=== PATIENT | female | born 1965 | race African-American/Black ===

== ENCOUNTER 2021-02-22 17:41 | Inpatient (IN) | payer OTHER ==
[2021-02-22 19:22] VITALS: BMI 36.3
[2021-02-22] MEDS ORDERED: MAG HYDROX/AL HYDROX/SIMETH 30 ML UNIT-DOSE CUP PO PRN (20:39)
[2021-02-22] MEDS ORDERED: MAGNESIUM CITRATE 300 ML BOTTLE PO PRN (20:39)
[2021-02-22] MEDS ORDERED: MENTHOL/PHENOL 1 EACH UD MM PRN (20:39)
[2021-02-22] MEDS ORDERED: BISMUTH SUBSALICYLATE 524 MG/30 ML PO PRN (20:39)
[2021-02-22] MEDS ORDERED: IBUPROFEN 400 MG TABLET (FP) PO PRN (20:39)
[2021-02-22] MEDS ORDERED: ONDANSETRON *ODT* 4 MG TABLET SL PRN (20:39)
[2021-02-22] MEDS ORDERED: MAGNESIUM HYDROX 2400MG/30ML ORAL SUSPENSION 30 ML CUP PO PRN (20:39)
[2021-02-22] MEDS ORDERED: NICOTINE POLACRILEX 2 MG GUM BUC PRN (20:39)
[2021-02-22] MEDS ORDERED: methaDONE HCL 10 MG TABLET (FOR DETOX USE ONLY) PO ONE (20:39)
[2021-02-22] MEDS ORDERED: cloNIDine HCL 0.1 MG TABLET PO PRN (20:39)
[2021-02-22] MEDS ORDERED: ACETAMINOPHEN 325 MG TABLET (FP) PO PRN ×2 (20:39)
[2021-02-22] MEDS ORDERED: THIAMINE HCL 100 MG TABLET (FP) PO SCH (22:00)
[2021-02-22] MEDS ORDERED: hydrOXYzine PAMOATE 25 MG CAPSULE (FP) PO SCH (22:00)
[2021-02-22] MEDS: MELATONIN 5 MG TABLETS PO SCH (22:39)
[2021-02-23] MEDS ORDERED: methaDONE HCL 10 MG TABLET (FOR DETOX USE ONLY) ONE (09:25)
[2021-02-23] MEDS: METHOCARBAMOL 500 MG TABLET PO PRN (10:21)
[2021-02-23] MEDS: PRENATAL VITAMINS W/ FOLIC ACID TABLET (FP) PO SCH (10:21)
[2021-02-23] MEDS: LISINOPRIL 5 MG TABLET PO SCH (10:22)
[2021-02-23] MEDS: NICOTINE 21 MG/24 HOURS TOPICAL PATCH TD SCH (10:25)
[2021-02-23] MEDS: INSULIN SLIDING SCALE (NOVOLOG) 1 VIAL SQ SCH ×2 (11:00→16:37)
[2021-02-23 11:10] LABS: HEMATOCRIT 34.6 % (32.4-45.2); HEMOGLOBIN 11.3 GM/dL (10.7-15.3); MCH 26.7 pg (25.7-33.7); MCHC 32.8 g/dl (32.0-36.0); MEAN CELL VOLUME 81.4 fl (80-96); MEAN PLT VOLUME 10.4 fl (7.5-11.1); PLATELET COUNT 249 10^3/uL (134-434); RBC 4.24 M/mm3 (3.60-5.2); RDW 15.1 % (11.6-15.6); WHITE BLOOD COUNT 6.3 K/mm3 (4.0-10.0)
[2021-02-23 11:19] LABS: BLOOD UREA NITROGEN 12.3 mg/dL (7-18)
[2021-02-23 11:20] LABS: ALBUMIN 3.3 g/dl (3.4-5.0); CALCIUM 8.8 mg/dL (8.5-10.1)
[2021-02-23 11:23] LABS: CREATININE 0.9 mg/dL (0.55-1.3)
[2021-02-23 11:25] LABS: BILIRUBIN,TOTAL 0.2 mg/dL (0.2-1); TOT PROT 6.4 g/dl (6.4-8.2)
[2021-02-23] MEDS: BENZTROPINE MESYLATE 1 MG TABLET PO SCH ×2 (12:09→22:00)
[2021-02-23] MEDS: risperiDONE 1 MG TABLET PO SCH ×2 (12:10→22:00)
[2021-02-23] MEDS: metFORMIN HCL 500 MG TABLET (FP) PO SCH (16:36)
[2021-02-23] MEDS: DIVALPROEX SODIUM 500 MG TABLET E.C. PO SCH (22:00)
[2021-02-23] MEDS: QUEtiapine FUMARATE 100 MG TABLET (FP) PO SCH (22:01)
[2021-02-23] MEDS: traZODone HCL 100 MG TABLET (FP) PO SCH (22:01)
[2021-02-23] MEDS: MELATONIN 5 MG TABLETS PO SCH (22:03)
[2021-02-24] MEDS: GLIMEPIRIDE 4 MG TABLET PO SCH (06:23)
[2021-02-24] MEDS: metFORMIN HCL 500 MG TABLET (FP) PO SCH ×2 (06:23→17:39)
[2021-02-24] MEDS: INSULIN SLIDING SCALE (NOVOLOG) 1 VIAL SQ SCH ×3 (06:23→17:46)
[2021-02-24] MEDS ORDERED: methaDONE HCL 10 MG TABLET (FOR DETOX USE ONLY) PO ONE (10:00)
[2021-02-24] MEDS: PRENATAL VITAMINS W/ FOLIC ACID TABLET (FP) PO SCH (10:07)
[2021-02-24] MEDS: BENZTROPINE MESYLATE 1 MG TABLET PO SCH ×2 (10:07→22:19)
[2021-02-24] MEDS: LISINOPRIL 5 MG TABLET PO SCH (10:08)
[2021-02-24] MEDS: risperiDONE 1 MG TABLET PO SCH ×2 (10:08→22:19)
[2021-02-24] MEDS: METHOCARBAMOL 500 MG TABLET PO PRN (10:08)
[2021-02-24] MEDS: NICOTINE 21 MG/24 HOURS TOPICAL PATCH TD SCH (10:09)
[2021-02-24] MEDS: QUEtiapine FUMARATE 100 MG TABLET (FP) PO SCH (22:19)
[2021-02-24] MEDS: traZODone HCL 100 MG TABLET (FP) PO SCH (22:19)
[2021-02-24] MEDS: DIVALPROEX SODIUM 500 MG TABLET E.C. PO SCH (22:19)
[2021-02-24] MEDS: MELATONIN 5 MG TABLETS PO SCH (22:20)
[2021-02-25] MEDS: metFORMIN HCL 500 MG TABLET (FP) PO SCH ×2 (06:18→17:32)
[2021-02-25] MEDS: GLIMEPIRIDE 4 MG TABLET PO SCH (06:19)
[2021-02-25] MEDS: INSULIN SLIDING SCALE (NOVOLOG) 1 VIAL SQ SCH ×3 (06:25→17:21)
[2021-02-25] MEDS ORDERED: methaDONE HCL 10 MG TABLET (FOR DETOX USE ONLY) ONE (09:05)
[2021-02-25] MEDS: LISINOPRIL 5 MG TABLET PO SCH (10:24)
[2021-02-25] MEDS: NICOTINE 21 MG/24 HOURS TOPICAL PATCH TD SCH (10:24)
[2021-02-25] MEDS: BENZTROPINE MESYLATE 1 MG TABLET PO SCH ×2 (10:25→22:20)
[2021-02-25] MEDS: risperiDONE 1 MG TABLET PO SCH ×2 (10:25→22:16)
[2021-02-25] MEDS: PRENATAL VITAMINS W/ FOLIC ACID TABLET (FP) PO SCH (10:26)
[2021-02-25] MEDS: METHOCARBAMOL 500 MG TABLET PO PRN (18:03)
[2021-02-25] MEDS: traZODone HCL 100 MG TABLET (FP) PO SCH (22:17)
[2021-02-25] MEDS: DIVALPROEX SODIUM 500 MG TABLET E.C. PO SCH (22:17)
[2021-02-25] MEDS: QUEtiapine FUMARATE 100 MG TABLET (FP) PO SCH (22:17)
[2021-02-25] MEDS: MELATONIN 5 MG TABLETS PO SCH (22:18)
[2021-02-26] MEDS: GLIMEPIRIDE 4 MG TABLET PO SCH (06:04)
[2021-02-26] MEDS: metFORMIN HCL 500 MG TABLET (FP) PO SCH ×2 (06:04→18:08)
[2021-02-26] MEDS: INSULIN SLIDING SCALE (NOVOLOG) 1 VIAL SQ SCH ×3 (06:04→18:09)
[2021-02-26] MEDS ORDERED: MAGNESIUM HYDROX 2400MG/30ML ORAL SUSPENSION 30 ML CUP PO ONE (10:00)
[2021-02-26] MEDS ORDERED: methaDONE HCL 10 MG TABLET (FOR DETOX USE ONLY) PO ONE (10:00)
[2021-02-26] MEDS: LISINOPRIL 5 MG TABLET PO SCH (10:12)
[2021-02-26] MEDS: BENZTROPINE MESYLATE 1 MG TABLET PO SCH ×2 (10:12→22:10)
[2021-02-26] MEDS: risperiDONE 1 MG TABLET PO SCH ×2 (10:12→22:10)
[2021-02-26] MEDS: NICOTINE 21 MG/24 HOURS TOPICAL PATCH TD SCH (10:12)
[2021-02-26] MEDS: PRENATAL VITAMINS W/ FOLIC ACID TABLET (FP) PO SCH (10:12)
[2021-02-26] MEDS: DOCUSATE SODIUM 100 MG CAPSULE (FP) PO SCH ×2 (13:02→22:10)
[2021-02-26] MEDS: traZODone HCL 100 MG TABLET (FP) PO SCH (22:10)
[2021-02-26] MEDS: MELATONIN 5 MG TABLETS PO SCH (22:10)
[2021-02-26] MEDS: QUEtiapine FUMARATE 100 MG TABLET (FP) PO SCH (22:10)
[2021-02-26] MEDS: DIVALPROEX SODIUM 500 MG TABLET E.C. PO SCH (22:10)
[2021-02-27] MEDS: metFORMIN HCL 500 MG TABLET (FP) PO SCH (06:17)
[2021-02-27] MEDS: DOCUSATE SODIUM 100 MG CAPSULE (FP) PO SCH (06:18)
[2021-02-27] MEDS: INSULIN SLIDING SCALE (NOVOLOG) 1 VIAL SQ SCH ×2 (06:21→11:45)
[2021-02-27] MEDS: GLIMEPIRIDE 4 MG TABLET PO SCH (06:21)
[2021-02-27] MEDS: METHOCARBAMOL 500 MG TABLET PO PRN (06:34)
[2021-02-27 09:41] VITALS: BP 125/68; PULSE 89; TEMP 98.4
[2021-02-27] MEDS: LISINOPRIL 5 MG TABLET PO SCH (11:32)
[2021-02-27] MEDS: BENZTROPINE MESYLATE 1 MG TABLET PO SCH (11:32)
[2021-02-27] MEDS: NICOTINE 21 MG/24 HOURS TOPICAL PATCH TD SCH (11:32)
[2021-02-27] MEDS: PRENATAL VITAMINS W/ FOLIC ACID TABLET (FP) PO SCH (11:32)
[2021-02-27] MEDS: risperiDONE 1 MG TABLET PO SCH (11:32)
== END 2021-02-27 11:48 | disposition other institution (70) | DRG 773 ==
LOC: YASAS 17:41 → Y6N 21:04
PROVIDERS: ADMIT Allergy & Immunology; ATTEND Allergy & Immunology
PROC: HZ2ZZZZ Detoxification Services for Substance Abuse Treatment (ICD-10-PCS; principal; 2021-02-22)
DX: F11.23 Opioid dependence with withdrawal (principal); F14.20 Cocaine dependence, uncomplicated; F17.210 Nicotine dependence, cigarettes, uncomplicated; F25.9 Schizoaffective disorder, unspecified; F19.24 Other psychoactive substance dependence with psychoactive substance-induced mood disorder; F19.282 Other psychoactive substance dependence with psychoactive substance-induced sleep disorder; I10 Essential (primary) hypertension; E11.9 Type 2 diabetes mellitus without complications; E78.5 Hyperlipidemia, unspecified; Z79.84 Long term (current) use of oral hypoglycemic drugs; Z56.0 Unemployment, unspecified
CPT/HCPCS: 36415; 80053; 82962; 85027; 86780; 93005; 93010; C9803; J2794; U0003; U0005

== ENCOUNTER 2021-02-27 12:29 | Inpatient (IN) | payer OTHER ==
[2021-02-27] MEDS ORDERED: IBUPROFEN 400 MG TABLET (FP) PO PRN (12:57)
[2021-02-27] MEDS ORDERED: hydrOXYzine PAMOATE 25 MG CAPSULE (FP) PO PRN (12:57)
[2021-02-27] MEDS ORDERED: MAG HYDROX/AL HYDROX/SIMETH 30 ML UNIT-DOSE CUP PO PRN (12:57)
[2021-02-27] MEDS ORDERED: MAGNESIUM CITRATE 300 ML BOTTLE PO PRN (12:57)
[2021-02-27] MEDS ORDERED: MENTHOL/PHENOL 1 EACH UD MM PRN (12:57)
[2021-02-27] MEDS ORDERED: ACETAMINOPHEN 325 MG TABLET (FP) PO PRN (12:57)
[2021-02-27] MEDS ORDERED: P-EPHED 60MG/TRIPROLIDI 2.5MG TABLET PO PRN (12:57)
[2021-02-27] MEDS ORDERED: MAGNESIUM HYDROX 2400MG/30ML ORAL SUSPENSION 30 ML CUP PO PRN (12:57)
[2021-02-27] MEDS ORDERED: LOPERAMIDE HCL 2 MG CAPSULE PO PRN (12:57)
[2021-02-27] MEDS ORDERED: guaiFENesin 200 MG/10 ML 10 ML UNIT-DOSE CUPS PO PRN (12:57)
[2021-02-27] MEDS: DOCUSATE SODIUM 100 MG CAPSULE (FP) PO SCH ×2 (15:32→21:13)
[2021-02-27] MEDS: METHOCARBAMOL 500 MG TABLET PO SCH ×2 (15:32→21:13)
[2021-02-27] MEDS: INSULIN SLIDING SCALE (NOVOLOG) 1 VIAL SQ SCH (16:40)
[2021-02-27] MEDS: metFORMIN HCL 500 MG TABLET (FP) PO SCH (16:40)
[2021-02-27] MEDS: NICOTINE 10 MG CARTRIDGE (INHALER) IH PRN (18:14)
[2021-02-27] MEDS: THIAMINE HCL 100 MG TABLET (FP) PO SCH (21:13)
[2021-02-27] MEDS: MELATONIN 5 MG TABLETS PO SCH (21:13)
[2021-02-28] MEDS ORDERED: INSULIN (NOVOLOG) ASPART 100 UNITS/ML 10ML VIAL ONE (03:09)
[2021-02-28] MEDS: METHOCARBAMOL 500 MG TABLET PO SCH ×3 (06:21→21:11)
[2021-02-28] MEDS: DOCUSATE SODIUM 100 MG CAPSULE (FP) PO SCH ×3 (06:21→21:11)
[2021-02-28] MEDS: GLIMEPIRIDE 4 MG TABLET PO SCH (06:23)
[2021-02-28] MEDS: INSULIN SLIDING SCALE (NOVOLOG) 1 VIAL SQ SCH ×2 (06:23→16:26)
[2021-02-28] MEDS: metFORMIN HCL 500 MG TABLET (FP) PO SCH ×2 (06:23→16:24)
[2021-02-28] MEDS: NICOTINE 10 MG CARTRIDGE (INHALER) IH PRN ×3 (07:08→16:27)
[2021-02-28] MEDS: ATORVASTATIN CA 10 MG TABLET (FP) PO SCH (10:30)
[2021-02-28] MEDS: LISINOPRIL 5 MG TABLET PO SCH (10:30)
[2021-02-28] MEDS: NICOTINE 21 MG/24 HOURS TOPICAL PATCH TD SCH (10:30)
[2021-02-28] MEDS: PRENATAL VITAMINS W/ FOLIC ACID TABLET (FP) PO SCH (10:30)
[2021-02-28] MEDS: MELATONIN 5 MG TABLETS PO SCH (21:11)
[2021-02-28] MEDS: THIAMINE HCL 100 MG TABLET (FP) PO SCH (21:12)
[2021-03-01] MEDS: metFORMIN HCL 500 MG TABLET (FP) PO SCH ×2 (07:45→16:27)
[2021-03-01] MEDS: DOCUSATE SODIUM 100 MG CAPSULE (FP) PO SCH ×3 (07:45→21:26)
[2021-03-01] MEDS: METHOCARBAMOL 500 MG TABLET PO SCH ×3 (07:45→21:26)
[2021-03-01] MEDS: GLIMEPIRIDE 4 MG TABLET PO SCH (07:45)
[2021-03-01] MEDS: INSULIN SLIDING SCALE (NOVOLOG) 1 VIAL SQ SCH ×2 (07:46→16:28)
[2021-03-01] MEDS: LISINOPRIL 5 MG TABLET PO SCH (10:07)
[2021-03-01] MEDS: PRENATAL VITAMINS W/ FOLIC ACID TABLET (FP) PO SCH (10:07)
[2021-03-01] MEDS: NICOTINE 21 MG/24 HOURS TOPICAL PATCH TD SCH (10:07)
[2021-03-01] MEDS: ATORVASTATIN CA 10 MG TABLET (FP) PO SCH (10:08)
[2021-03-01] MEDS: NICOTINE 10 MG CARTRIDGE (INHALER) IH PRN ×3 (10:08→19:21)
[2021-03-01] MEDS ORDERED: BENZTROPINE MESYLATE 2 MG TABLET PO SCH (11:30)
[2021-03-01] MEDS: hydrOXYzine PAMOATE 50 MG CAPSULE (FP) PO PRN ×2 (12:18→19:23)
[2021-03-01] MEDS: risperiDONE 1 MG TABLET PO SCH ×2 (12:18→21:26)
[2021-03-01] MEDS: MELATONIN 5 MG TABLETS PO SCH (21:26)
[2021-03-01] MEDS: BENZTROPINE MESYLATE 1 MG TABLET PO SCH (21:26)
[2021-03-01] MEDS: THIAMINE HCL 100 MG TABLET (FP) PO SCH (21:26)
[2021-03-01] MEDS: QUEtiapine FUMARATE 100 MG TABLET (FP) PO SCH (21:27)
[2021-03-01] MEDS ORDERED: MASKS NR ONE (21:27)
[2021-03-01] MEDS: DIVALPROEX SODIUM 500 MG TABLET E.C. PO SCH (21:27)
[2021-03-01] MEDS: traZODone HCL 100 MG TABLET (FP) PO SCH (21:59)
[2021-03-02] MEDS: metFORMIN HCL 500 MG TABLET (FP) PO SCH ×2 (06:57→17:04)
[2021-03-02] MEDS: METHOCARBAMOL 500 MG TABLET PO SCH ×3 (06:57→21:26)
[2021-03-02] MEDS: DOCUSATE SODIUM 100 MG CAPSULE (FP) PO SCH ×3 (06:57→21:27)
[2021-03-02] MEDS: GLIMEPIRIDE 4 MG TABLET PO SCH (06:58)
[2021-03-02] MEDS: INSULIN SLIDING SCALE (NOVOLOG) 1 VIAL SQ SCH ×2 (06:59→17:06)
[2021-03-02] MEDS: NICOTINE 10 MG CARTRIDGE (INHALER) IH PRN ×3 (07:36→17:03)
[2021-03-02] MEDS: NICOTINE 21 MG/24 HOURS TOPICAL PATCH TD SCH (10:35)
[2021-03-02] MEDS: BENZTROPINE MESYLATE 1 MG TABLET PO SCH ×2 (10:35→21:27)
[2021-03-02] MEDS: LISINOPRIL 5 MG TABLET PO SCH (10:36)
[2021-03-02] MEDS: risperiDONE 1 MG TABLET PO SCH ×2 (10:36→21:27)
[2021-03-02] MEDS: ATORVASTATIN CA 10 MG TABLET (FP) PO SCH (10:36)
[2021-03-02] MEDS: PRENATAL VITAMINS W/ FOLIC ACID TABLET (FP) PO SCH (10:36)
[2021-03-02] MEDS: hydrOXYzine PAMOATE 50 MG CAPSULE (FP) PO PRN ×2 (12:40→21:29)
[2021-03-02] MEDS: THIAMINE HCL 100 MG TABLET (FP) PO SCH (21:26)
[2021-03-02] MEDS: QUEtiapine FUMARATE 100 MG TABLET (FP) PO SCH (21:26)
[2021-03-02] MEDS: DIVALPROEX SODIUM 500 MG TABLET E.C. PO SCH (21:27)
[2021-03-02] MEDS: traZODone HCL 100 MG TABLET (FP) PO SCH (21:27)
[2021-03-02] MEDS: MELATONIN 5 MG TABLETS PO SCH (23:36)
[2021-03-03] MEDS ORDERED: PT OWN MED DRAWER 7, Y5N ONE (03:08)
[2021-03-03] MEDS: metFORMIN HCL 500 MG TABLET (FP) PO SCH ×2 (06:58→17:09)
[2021-03-03] MEDS: GLIMEPIRIDE 4 MG TABLET PO SCH (06:58)
[2021-03-03] MEDS: METHOCARBAMOL 500 MG TABLET PO SCH ×3 (06:58→21:06)
[2021-03-03] MEDS: DOCUSATE SODIUM 100 MG CAPSULE (FP) PO SCH ×3 (06:58→21:06)
[2021-03-03] MEDS: INSULIN SLIDING SCALE (NOVOLOG) 1 VIAL SQ SCH ×2 (06:58→17:09)
[2021-03-03] MEDS ORDERED: INSULIN (NOVOLOG) ASPART 100 UNITS/ML 10ML VIAL ONE (06:59)
[2021-03-03] MEDS: hydrOXYzine PAMOATE 50 MG CAPSULE (FP) PO PRN ×4 (07:00→17:37)
[2021-03-03] MEDS: PRENATAL VITAMINS W/ FOLIC ACID TABLET (FP) PO SCH (10:09)
[2021-03-03] MEDS: risperiDONE 1 MG TABLET PO SCH ×2 (10:10→21:06)
[2021-03-03] MEDS: BENZTROPINE MESYLATE 1 MG TABLET PO SCH ×2 (10:10→21:06)
[2021-03-03] MEDS: NICOTINE 21 MG/24 HOURS TOPICAL PATCH TD SCH (10:10)
[2021-03-03] MEDS: ATORVASTATIN CA 10 MG TABLET (FP) PO SCH (10:10)
[2021-03-03] MEDS: LISINOPRIL 5 MG TABLET PO SCH (10:11)
[2021-03-03] MEDS: NICOTINE 10 MG CARTRIDGE (INHALER) IH PRN ×3 (10:14→17:37)
[2021-03-03] MEDS: QUEtiapine FUMARATE 100 MG TABLET (FP) PO SCH (21:06)
[2021-03-03] MEDS: traZODone HCL 100 MG TABLET (FP) PO SCH (21:06)
[2021-03-03] MEDS: MELATONIN 5 MG TABLETS PO SCH (21:06)
[2021-03-03] MEDS: DIVALPROEX SODIUM 500 MG TABLET E.C. PO SCH (21:06)
[2021-03-03] MEDS: THIAMINE HCL 100 MG TABLET (FP) PO SCH (21:06)
[2021-03-04] MEDS: DOCUSATE SODIUM 100 MG CAPSULE (FP) PO SCH ×3 (06:21→21:20)
[2021-03-04] MEDS: METHOCARBAMOL 500 MG TABLET PO SCH ×3 (06:21→21:19)
[2021-03-04] MEDS: metFORMIN HCL 500 MG TABLET (FP) PO SCH ×2 (07:21→17:29)
[2021-03-04] MEDS ORDERED: PT OWN MED DRAWER 7, Y5N ONE (07:23)
[2021-03-04] MEDS: GLIMEPIRIDE 4 MG TABLET PO SCH (07:23)
[2021-03-04] MEDS: INSULIN SLIDING SCALE (NOVOLOG) 1 VIAL SQ SCH ×2 (07:30→17:29)
[2021-03-04] MEDS: LISINOPRIL 5 MG TABLET PO SCH (10:01)
[2021-03-04] MEDS: PRENATAL VITAMINS W/ FOLIC ACID TABLET (FP) PO SCH (10:01)
[2021-03-04] MEDS: ATORVASTATIN CA 10 MG TABLET (FP) PO SCH (10:01)
[2021-03-04] MEDS: BENZTROPINE MESYLATE 1 MG TABLET PO SCH ×2 (10:02→21:18)
[2021-03-04] MEDS: NICOTINE 21 MG/24 HOURS TOPICAL PATCH TD SCH (10:02)
[2021-03-04] MEDS: hydrOXYzine PAMOATE 50 MG CAPSULE (FP) PO PRN ×4 (10:02→21:20)
[2021-03-04] MEDS: NICOTINE 10 MG CARTRIDGE (INHALER) IH PRN ×2 (10:02→17:57)
[2021-03-04] MEDS: risperiDONE 1 MG TABLET PO SCH ×2 (10:02→21:19)
[2021-03-04] MEDS: traZODone HCL 100 MG TABLET (FP) PO SCH (21:18)
[2021-03-04] MEDS: DIVALPROEX SODIUM 500 MG TABLET E.C. PO SCH (21:18)
[2021-03-04] MEDS: QUEtiapine FUMARATE 100 MG TABLET (FP) PO SCH (21:19)
[2021-03-04] MEDS: MELATONIN 5 MG TABLETS PO SCH (21:20)
[2021-03-04] MEDS: THIAMINE HCL 100 MG TABLET (FP) PO SCH (22:19)
[2021-03-05] MEDS ORDERED: PT OWN MED DRAWER 7, Y5N ONE (03:43)
[2021-03-05] MEDS: DOCUSATE SODIUM 100 MG CAPSULE (FP) PO SCH ×3 (08:03→21:38)
[2021-03-05] MEDS: METHOCARBAMOL 500 MG TABLET PO SCH ×3 (08:03→21:38)
[2021-03-05] MEDS: hydrOXYzine PAMOATE 50 MG CAPSULE (FP) PO PRN ×3 (08:04→18:24)
[2021-03-05] MEDS: NICOTINE 10 MG CARTRIDGE (INHALER) IH PRN ×2 (08:05→16:34)
[2021-03-05] MEDS: INSULIN SLIDING SCALE (NOVOLOG) 1 VIAL SQ SCH ×2 (08:08→16:33)
[2021-03-05] MEDS: GLIMEPIRIDE 4 MG TABLET PO SCH (08:08)
[2021-03-05] MEDS: metFORMIN HCL 500 MG TABLET (FP) PO SCH ×2 (08:08→16:33)
[2021-03-05] MEDS: BENZTROPINE MESYLATE 1 MG TABLET PO SCH ×2 (10:00→21:38)
[2021-03-05] MEDS: risperiDONE 1 MG TABLET PO SCH ×2 (10:00→21:38)
[2021-03-05] MEDS: PRENATAL VITAMINS W/ FOLIC ACID TABLET (FP) PO SCH (10:00)
[2021-03-05] MEDS: NICOTINE 21 MG/24 HOURS TOPICAL PATCH TD SCH (10:00)
[2021-03-05] MEDS: LISINOPRIL 5 MG TABLET PO SCH (10:00)
[2021-03-05] MEDS: ATORVASTATIN CA 10 MG TABLET (FP) PO SCH (10:00)
[2021-03-05] MEDS: DIVALPROEX SODIUM 500 MG TABLET E.C. PO SCH (21:38)
[2021-03-05] MEDS: QUEtiapine FUMARATE 100 MG TABLET (FP) PO SCH (21:38)
[2021-03-05] MEDS: MELATONIN 5 MG TABLETS PO SCH (21:38)
[2021-03-05] MEDS: traZODone HCL 100 MG TABLET (FP) PO SCH (21:38)
[2021-03-05] MEDS: THIAMINE HCL 100 MG TABLET (FP) PO SCH (21:38)
[2021-03-06] MEDS: METHOCARBAMOL 500 MG TABLET PO SCH ×3 (06:40→21:28)
[2021-03-06] MEDS: DOCUSATE SODIUM 100 MG CAPSULE (FP) PO SCH ×3 (06:40→21:26)
[2021-03-06] MEDS: GLIMEPIRIDE 4 MG TABLET PO SCH (06:40)
[2021-03-06] MEDS: metFORMIN HCL 500 MG TABLET (FP) PO SCH ×2 (06:40→16:39)
[2021-03-06] MEDS: hydrOXYzine PAMOATE 50 MG CAPSULE (FP) PO PRN ×4 (06:46→21:29)
[2021-03-06] MEDS ORDERED: PT OWN MED DRAWER 7, Y5N ONE (06:47)
[2021-03-06] MEDS: NICOTINE 10 MG CARTRIDGE (INHALER) IH PRN ×3 (06:48→14:42)
[2021-03-06] MEDS: INSULIN SLIDING SCALE (NOVOLOG) 1 VIAL SQ SCH ×2 (06:56→16:57)
[2021-03-06] MEDS: LISINOPRIL 5 MG TABLET PO SCH (09:45)
[2021-03-06] MEDS: risperiDONE 1 MG TABLET PO SCH ×2 (09:45→21:27)
[2021-03-06] MEDS: PRENATAL VITAMINS W/ FOLIC ACID TABLET (FP) PO SCH (09:45)
[2021-03-06] MEDS: NICOTINE 21 MG/24 HOURS TOPICAL PATCH TD SCH (09:45)
[2021-03-06] MEDS: BENZTROPINE MESYLATE 1 MG TABLET PO SCH ×2 (09:45→21:28)
[2021-03-06] MEDS: ATORVASTATIN CA 10 MG TABLET (FP) PO SCH (09:45)
[2021-03-06] MEDS: DIVALPROEX SODIUM 500 MG TABLET E.C. PO SCH (21:26)
[2021-03-06] MEDS: QUEtiapine FUMARATE 100 MG TABLET (FP) PO SCH (21:27)
[2021-03-06] MEDS: traZODone HCL 100 MG TABLET (FP) PO SCH (21:27)
[2021-03-06] MEDS: MELATONIN 5 MG TABLETS PO SCH (21:28)
[2021-03-06] MEDS: THIAMINE HCL 100 MG TABLET (FP) PO SCH (22:04)
[2021-03-07] MEDS: DOCUSATE SODIUM 100 MG CAPSULE (FP) PO SCH ×3 (06:53→21:32)
[2021-03-07] MEDS: metFORMIN HCL 500 MG TABLET (FP) PO SCH ×2 (06:53→16:58)
[2021-03-07] MEDS: METHOCARBAMOL 500 MG TABLET PO SCH ×3 (06:53→21:30)
[2021-03-07] MEDS: INSULIN SLIDING SCALE (NOVOLOG) 1 VIAL SQ SCH ×2 (06:54→16:59)
[2021-03-07] MEDS: GLIMEPIRIDE 4 MG TABLET PO SCH (06:54)
[2021-03-07] MEDS: hydrOXYzine PAMOATE 50 MG CAPSULE (FP) PO PRN ×4 (06:54→21:31)
[2021-03-07] MEDS: NICOTINE 10 MG CARTRIDGE (INHALER) IH PRN ×3 (06:57→17:36)
[2021-03-07] MEDS ORDERED: INSULIN (NOVOLOG) ASPART 100 UNITS/ML 10ML VIAL ONE (07:09)
[2021-03-07] MEDS: NICOTINE 21 MG/24 HOURS TOPICAL PATCH TD SCH (09:57)
[2021-03-07] MEDS: PRENATAL VITAMINS W/ FOLIC ACID TABLET (FP) PO SCH (09:57)
[2021-03-07] MEDS: risperiDONE 1 MG TABLET PO SCH ×2 (09:57→21:32)
[2021-03-07] MEDS: BENZTROPINE MESYLATE 1 MG TABLET PO SCH ×2 (09:58→21:31)
[2021-03-07] MEDS: LISINOPRIL 5 MG TABLET PO SCH (09:58)
[2021-03-07] MEDS: ATORVASTATIN CA 10 MG TABLET (FP) PO SCH (09:58)
[2021-03-07] MEDS: traZODone HCL 100 MG TABLET (FP) PO SCH (21:31)
[2021-03-07] MEDS: QUEtiapine FUMARATE 100 MG TABLET (FP) PO SCH (21:31)
[2021-03-07] MEDS: DIVALPROEX SODIUM 500 MG TABLET E.C. PO SCH (21:31)
[2021-03-07] MEDS: MELATONIN 5 MG TABLETS PO SCH (21:32)
[2021-03-07] MEDS: THIAMINE HCL 100 MG TABLET (FP) PO SCH (21:48)
[2021-03-08] MEDS: METHOCARBAMOL 500 MG TABLET PO SCH ×3 (06:46→21:22)
[2021-03-08] MEDS: GLIMEPIRIDE 4 MG TABLET PO SCH (06:46)
[2021-03-08] MEDS: metFORMIN HCL 500 MG TABLET (FP) PO SCH ×2 (06:46→16:59)
[2021-03-08] MEDS: DOCUSATE SODIUM 100 MG CAPSULE (FP) PO SCH ×3 (06:46→21:22)
[2021-03-08] MEDS: NICOTINE 10 MG CARTRIDGE (INHALER) IH PRN ×2 (06:47→09:46)
[2021-03-08] MEDS: hydrOXYzine PAMOATE 50 MG CAPSULE (FP) PO PRN ×4 (06:47→21:23)
[2021-03-08] MEDS: INSULIN SLIDING SCALE (NOVOLOG) 1 VIAL SQ SCH ×2 (06:49→19:45)
[2021-03-08] MEDS ORDERED: INSULIN (NOVOLOG) ASPART 100 UNITS/ML 10ML VIAL ONE (07:02)
[2021-03-08] MEDS: risperiDONE 1 MG TABLET PO SCH ×2 (09:42→21:22)
[2021-03-08] MEDS: PRENATAL VITAMINS W/ FOLIC ACID TABLET (FP) PO SCH (09:42)
[2021-03-08] MEDS: NICOTINE 21 MG/24 HOURS TOPICAL PATCH TD SCH (09:42)
[2021-03-08] MEDS: ATORVASTATIN CA 10 MG TABLET (FP) PO SCH (09:43)
[2021-03-08] MEDS: BENZTROPINE MESYLATE 1 MG TABLET PO SCH ×2 (09:43→21:21)
[2021-03-08] MEDS: LISINOPRIL 5 MG TABLET PO SCH (09:43)
[2021-03-08] MEDS: DIVALPROEX SODIUM 500 MG TABLET E.C. PO SCH (21:21)
[2021-03-08] MEDS: QUEtiapine FUMARATE 100 MG TABLET (FP) PO SCH (21:22)
[2021-03-08] MEDS: traZODone HCL 100 MG TABLET (FP) PO SCH (21:22)
[2021-03-08] MEDS: THIAMINE HCL 100 MG TABLET (FP) PO SCH (21:23)
[2021-03-08] MEDS: MELATONIN 5 MG TABLETS PO SCH (21:23)
[2021-03-09] MEDS: metFORMIN HCL 500 MG TABLET (FP) PO SCH ×2 (07:05→16:30)
[2021-03-09] MEDS: METHOCARBAMOL 500 MG TABLET PO SCH ×3 (07:05→21:22)
[2021-03-09] MEDS: GLIMEPIRIDE 4 MG TABLET PO SCH (07:05)
[2021-03-09] MEDS: DOCUSATE SODIUM 100 MG CAPSULE (FP) PO SCH ×3 (07:05→21:22)
[2021-03-09] MEDS: hydrOXYzine PAMOATE 50 MG CAPSULE (FP) PO PRN ×3 (07:06→21:23)
[2021-03-09] MEDS: INSULIN SLIDING SCALE (NOVOLOG) 1 VIAL SQ SCH ×2 (07:06→16:29)
[2021-03-09] MEDS: LISINOPRIL 5 MG TABLET PO SCH (09:53)
[2021-03-09] MEDS: ATORVASTATIN CA 10 MG TABLET (FP) PO SCH (09:53)
[2021-03-09] MEDS: risperiDONE 1 MG TABLET PO SCH ×2 (09:53→21:22)
[2021-03-09] MEDS: NICOTINE 21 MG/24 HOURS TOPICAL PATCH TD SCH (09:53)
[2021-03-09] MEDS: BENZTROPINE MESYLATE 1 MG TABLET PO SCH ×2 (09:53→21:22)
[2021-03-09] MEDS: PRENATAL VITAMINS W/ FOLIC ACID TABLET (FP) PO SCH (09:53)
[2021-03-09] MEDS: NICOTINE 10 MG CARTRIDGE (INHALER) IH PRN ×3 (09:54→18:14)
[2021-03-09] MEDS: DIVALPROEX SODIUM 500 MG TABLET E.C. PO SCH (21:22)
[2021-03-09] MEDS: MELATONIN 5 MG TABLETS PO SCH (21:22)
[2021-03-09] MEDS: traZODone HCL 100 MG TABLET (FP) PO SCH (21:22)
[2021-03-09] MEDS: QUEtiapine FUMARATE 100 MG TABLET (FP) PO SCH (21:22)
[2021-03-09] MEDS: THIAMINE HCL 100 MG TABLET (FP) PO SCH (21:22)
[2021-03-10] MEDS ORDERED: PT OWN MED DRAWER 7, Y5N ONE ×2 (02:50→21:42)
[2021-03-10] MEDS: METHOCARBAMOL 500 MG TABLET PO SCH ×3 (06:38→21:13)
[2021-03-10] MEDS: DOCUSATE SODIUM 100 MG CAPSULE (FP) PO SCH ×3 (06:38→21:13)
[2021-03-10] MEDS: GLIMEPIRIDE 4 MG TABLET PO SCH (06:38)
[2021-03-10] MEDS: metFORMIN HCL 500 MG TABLET (FP) PO SCH ×2 (06:38→16:29)
[2021-03-10] MEDS: hydrOXYzine PAMOATE 50 MG CAPSULE (FP) PO PRN ×4 (06:38→21:15)
[2021-03-10] MEDS: INSULIN SLIDING SCALE (NOVOLOG) 1 VIAL SQ SCH ×2 (07:13→16:29)
[2021-03-10] MEDS: risperiDONE 1 MG TABLET PO SCH ×2 (09:42→21:14)
[2021-03-10] MEDS: ATORVASTATIN CA 10 MG TABLET (FP) PO SCH (09:42)
[2021-03-10] MEDS: PRENATAL VITAMINS W/ FOLIC ACID TABLET (FP) PO SCH (09:42)
[2021-03-10] MEDS: LISINOPRIL 5 MG TABLET PO SCH (09:42)
[2021-03-10] MEDS: NICOTINE 21 MG/24 HOURS TOPICAL PATCH TD SCH (09:42)
[2021-03-10] MEDS: BENZTROPINE MESYLATE 1 MG TABLET PO SCH ×2 (09:42→21:13)
[2021-03-10] MEDS: NICOTINE 10 MG CARTRIDGE (INHALER) IH PRN (18:18)
[2021-03-10] MEDS: QUEtiapine FUMARATE 100 MG TABLET (FP) PO SCH (21:13)
[2021-03-10] MEDS: THIAMINE HCL 100 MG TABLET (FP) PO SCH (21:13)
[2021-03-10] MEDS: traZODone HCL 100 MG TABLET (FP) PO SCH (21:13)
[2021-03-10] MEDS: MELATONIN 5 MG TABLETS PO SCH (21:13)
[2021-03-10] MEDS: DIVALPROEX SODIUM 500 MG TABLET E.C. PO SCH (21:13)
[2021-03-11] MEDS: DOCUSATE SODIUM 100 MG CAPSULE (FP) PO SCH ×3 (08:02→21:30)
[2021-03-11] MEDS: INSULIN SLIDING SCALE (NOVOLOG) 1 VIAL SQ SCH ×2 (08:03→16:41)
[2021-03-11] MEDS: GLIMEPIRIDE 4 MG TABLET PO SCH (08:03)
[2021-03-11] MEDS: metFORMIN HCL 500 MG TABLET (FP) PO SCH ×2 (08:03→16:41)
[2021-03-11] MEDS: METHOCARBAMOL 500 MG TABLET PO SCH ×3 (08:03→21:30)
[2021-03-11] MEDS: PRENATAL VITAMINS W/ FOLIC ACID TABLET (FP) PO SCH (10:31)
[2021-03-11] MEDS: LISINOPRIL 5 MG TABLET PO SCH (10:31)
[2021-03-11] MEDS: NICOTINE 21 MG/24 HOURS TOPICAL PATCH TD SCH (10:31)
[2021-03-11] MEDS: BENZTROPINE MESYLATE 1 MG TABLET PO SCH ×2 (10:32→21:30)
[2021-03-11] MEDS: ATORVASTATIN CA 10 MG TABLET (FP) PO SCH (10:32)
[2021-03-11] MEDS: risperiDONE 1 MG TABLET PO SCH (10:32)
[2021-03-11] MEDS: hydrOXYzine PAMOATE 50 MG CAPSULE (FP) PO PRN ×2 (10:34→21:31)
[2021-03-11] MEDS: NICOTINE 10 MG CARTRIDGE (INHALER) IH PRN ×2 (10:35→18:07)
[2021-03-11] MEDS ORDERED: HALOPERIDOL DECANOATE 500 MG/5ML MDV IM ONE (14:03)
[2021-03-11] MEDS ORDERED: PT OWN MED DRAWER 7, Y5N ONE (14:12)
[2021-03-11] MEDS: traZODone HCL 100 MG TABLET (FP) PO SCH (21:30)
[2021-03-11] MEDS: MELATONIN 5 MG TABLETS PO SCH (21:30)
[2021-03-11] MEDS: DIVALPROEX SODIUM 500 MG TABLET E.C. PO SCH (21:30)
[2021-03-11] MEDS: THIAMINE HCL 100 MG TABLET (FP) PO SCH (21:32)
[2021-03-12] MEDS: hydrOXYzine PAMOATE 50 MG CAPSULE (FP) PO PRN ×4 (06:54→21:37)
[2021-03-12] MEDS: DOCUSATE SODIUM 100 MG CAPSULE (FP) PO SCH ×3 (06:54→21:36)
[2021-03-12] MEDS: GLIMEPIRIDE 4 MG TABLET PO SCH (06:54)
[2021-03-12] MEDS: METHOCARBAMOL 500 MG TABLET PO SCH ×3 (06:54→21:35)
[2021-03-12] MEDS: INSULIN SLIDING SCALE (NOVOLOG) 1 VIAL SQ SCH ×2 (06:55→17:02)
[2021-03-12] MEDS: metFORMIN HCL 500 MG TABLET (FP) PO SCH ×2 (06:55→16:45)
[2021-03-12] MEDS: ATORVASTATIN CA 10 MG TABLET (FP) PO SCH (10:20)
[2021-03-12] MEDS: LISINOPRIL 5 MG TABLET PO SCH (10:20)
[2021-03-12] MEDS: BENZTROPINE MESYLATE 1 MG TABLET PO SCH ×2 (10:20→21:35)
[2021-03-12] MEDS: PRENATAL VITAMINS W/ FOLIC ACID TABLET (FP) PO SCH (10:20)
[2021-03-12] MEDS: NICOTINE 21 MG/24 HOURS TOPICAL PATCH TD SCH (10:20)
[2021-03-12] MEDS: NICOTINE 10 MG CARTRIDGE (INHALER) IH PRN (18:36)
[2021-03-12] MEDS: traZODone HCL 100 MG TABLET (FP) PO SCH (21:35)
[2021-03-12] MEDS: DIVALPROEX SODIUM 500 MG TABLET E.C. PO SCH (21:35)
[2021-03-12] MEDS: THIAMINE HCL 100 MG TABLET (FP) PO SCH (21:36)
[2021-03-12] MEDS: MELATONIN 5 MG TABLETS PO SCH (21:36)
[2021-03-13] MEDS ORDERED: PT OWN MED DRAWER 7, Y5N ONE ×2 (03:06→09:02)
[2021-03-13] MEDS ORDERED: INSULIN (NOVOLOG) ASPART 100 UNITS/ML 10ML VIAL ONE (03:06)
[2021-03-13] MEDS: DOCUSATE SODIUM 100 MG CAPSULE (FP) PO SCH (06:42)
[2021-03-13] MEDS: GLIMEPIRIDE 4 MG TABLET PO SCH (06:42)
[2021-03-13] MEDS: METHOCARBAMOL 500 MG TABLET PO SCH (06:42)
[2021-03-13] MEDS: hydrOXYzine PAMOATE 50 MG CAPSULE (FP) PO PRN (06:42)
[2021-03-13] MEDS: metFORMIN HCL 500 MG TABLET (FP) PO SCH (06:42)
[2021-03-13] MEDS: INSULIN SLIDING SCALE (NOVOLOG) 1 VIAL SQ SCH (06:45)
[2021-03-13] MEDS ORDERED: HYDROCORTISONE 1% TOPICAL CREAM 30 GM TUBE TP PRN (06:56)
[2021-03-13 07:01] VITALS: BP 141/87; PULSE 89; TEMP 97
[2021-03-13] MEDS: LISINOPRIL 5 MG TABLET PO SCH (09:00)
[2021-03-13] MEDS: ATORVASTATIN CA 10 MG TABLET (FP) PO SCH (09:00)
[2021-03-13] MEDS: BENZTROPINE MESYLATE 1 MG TABLET PO SCH (09:00)
[2021-03-13] MEDS: PRENATAL VITAMINS W/ FOLIC ACID TABLET (FP) PO SCH (09:00)
== END 2021-03-13 09:05 | disposition home or self-care (01) | DRG 772 ==
LOC: YASAS 12:29 → Y3W 12:30
PROVIDERS: ADMIT Allergy & Immunology; ATTEND Allergy & Immunology
PROC: HZ42ZZZ Group Counseling for Substance Abuse Treatment, Cognitive-Behavioral (ICD-10-PCS; principal; 2021-02-27)
DX: F11.20 Opioid dependence, uncomplicated (principal); F14.20 Cocaine dependence, uncomplicated; F17.210 Nicotine dependence, cigarettes, uncomplicated; F19.280 Other psychoactive substance dependence with psychoactive substance-induced anxiety disorder; F19.282 Other psychoactive substance dependence with psychoactive substance-induced sleep disorder; F25.9 Schizoaffective disorder, unspecified; E78.5 Hyperlipidemia, unspecified; G47.00 Insomnia, unspecified; I10 Essential (primary) hypertension; E11.9 Type 2 diabetes mellitus without complications; R21 Rash and other nonspecific skin eruption; Z79.84 Long term (current) use of oral hypoglycemic drugs
CPT/HCPCS: 80164; 82962; J2794